=== PATIENT | male | born 1990 | race African-American/Black ===

== ENCOUNTER 2023-12-29 09:22 | Emergency (ER) | payer MEDICAID ==
[~2023-12-29] VITALS: Ht 180.3 cm; Wt 78.0 kg
[~2023-12-29 09:22] MED LIST: INSLIS SUBCUT; LANTUSUD SUBCUT; METF-873 PO
[2023-12-29 09:28] VITALS: O2SAT 100
[2023-12-29] MEDS ORDERED: BLOO-1812 MC (09:52)
[2023-12-29] MEDS ORDERED: LANC1COM7 TP (09:52)
[2023-12-29] MEDS ORDERED: LANTUSUD SUBCUT (09:52)
[2023-12-29 09:58] LABS: BASOPHILS % 0.3 % (0.0-2.0); EOSINOPHILS % 0.6 % (0.0-5.0); HEMATOCRIT. 48.5 % (42.0-52.0); HEMOGLOBIN. 15.6 g/dL (14.0-18.0); LYMPHOCYTES % 15.6 % (20.0-50.0); MEAN CORPUSCULAR HEMOGLOBIN 27.6 pg (28.0-32.0); MEAN CORPUSCULAR HGB CONC 32.1 g/dL (31.0-37.0); MEAN CORPUSCULAR VOLUME 85.9 fL (80.0-94.0); MEAN PLATELET VOLUME 8.8 fl (7.4-10.4); MONOCYTES % 5.2 % (2.0-8.0); NEUTROPHILS % 78.3 % (40.0-76.0); PLATELET 189 x1000/uL (130-400); RED BLOOD CELL COUNT 5.64 mill/uL (4.7-6.1); RED CELL DISTRIBUTION WIDTH 13.6 % (11.6-14.6); WHITE BLOOD COUNT 10.1 x1000/uL (4.5-11.0)
[2023-12-29] MEDS: ACETAMINOPHEN 325MG TABLET PO ONE (10:03)
[2023-12-29 10:06] LABS: CHLORIDE 104 mEq/L (98-107); SODIUM 134 mEq/L (136-145)
[2023-12-29 10:07] LABS: CALCIUM 9.3 mg/dL (8.7-10.4); CARBON DIOXIDE 24 mEq/L (21-32)
[2023-12-29 10:12] LABS: CREATININE 0.9 mg/dL (0.6-1.3); GLUCOSE 315 mg/dL (70-105); UREA NITROGEN BLOOD 11 mg/dL (9-23)
[2023-12-29 10:14] LABS: ALANINE AMINOTRANSFERASE 16 IU/L (10-49); ALBUMIN 4.3 g/dL (3.2-4.8); ASPARTATE AMINOTRANSFERASE 16 IU/L (<34); BILIRUBIN DIRECT 0.1 mg/dL (<=3.0); BILIRUBIN TOTAL 0.5 mg/dL (0.1-1.0)
[2023-12-29 10:15] LABS: PROTEIN TOTAL 7.3 g/dL (6.0-8.3)
[2023-12-29 11:12] VITALS: BP 151/92; PULSE 59; RESP 18; TEMP 36.78072; O2SAT 99
== END 2023-12-29 11:21 | disposition home or self-care (01) ==
LOC: ER 09:22
DX: R10.9 Unspecified abdominal pain (principal); E11.9 Type 2 diabetes mellitus without complications; Z79.899 Other long term (current) drug therapy
CPT/HCPCS: 36415; 74176; 80048; 80076; 82962; 85025; 86850; 86900; 99284

== ENCOUNTER 2024-09-16 18:38 | Emergency (ER) | payer MEDICAID, OTHER ==
[~2024-09-16] VITALS: Ht 175.3 cm; Wt 69.0 kg
[~2024-09-16 18:38] MED LIST changes: +BLOO-1812 MC; +LANC1COM7 TP; +METF-1149 PO; -METF-873 PO
[2024-09-16 18:49] VITALS: TEMP 37.2; O2SAT 96
[2024-09-16 19:48] LABS: BASOPHILS % 0.3 % (0.0-2.0); EOSINOPHILS % 2.2 % (0.0-5.0); HEMATOCRIT. 42.6 % (42.0-52.0); HEMOGLOBIN. 14.2 g/dL (14.0-18.0); LYMPHOCYTES % 33.0 % (20.0-50.0); MEAN PLATELET VOLUME 9.3 fl (7.4-10.4); MONOCYTES % 4.3 % (2.0-8.0); NEUTROPHILS % 60.2 % (40.0-76.0); PLATELET 141 x1000/uL (130-400); RED BLOOD CELL COUNT 4.95 mill/uL (4.7-6.1); RED CELL DISTRIBUTION WIDTH 13.6 % (11.6-14.6)
[2024-09-16 20:02] LABS: CREATININE 1.0 mg/dL (0.6-1.3); UREA NITROGEN BLOOD 18 mg/dL (9-23)
[2024-09-16 20:03] LABS: TROPONIN I HIGH SENSITIVITY < 4 ng/L (3.0-53)
[2024-09-16] MEDS: SODIUM CHLORIDE 0.9% 1,000 ML IV ONE (20:21)
[2024-09-16] MEDS: INSULIN REGULAR (HUMULIN R) 1000UNITS/10ML VIAL SUBCUT ONE (20:49)
[2024-09-16] MEDS ORDERED: LANTUSUD SUBCUT (21:33)
[2024-09-16] MEDS ORDERED: LANC1COM7 TP (21:33)
[2024-09-16] MEDS ORDERED: METF-1149 PO (21:33)
[2024-09-16] MEDS ORDERED: INSLIS SUBCUT (21:33)
[2024-09-16] MEDS ORDERED: BLOO-1812 MC (21:33)
[2024-09-16 21:34] LABS: CLARITY URINE CLEAR (CLEAR); COLOR URINE YELLOW (YELLOW); PH URINE 5.5 (4.5-8.0); SPECIFIC GRAVITY URINE 1.042 (1.005-1.030)
[2024-09-16 21:35] LABS: GLUCOSE URINE 3+ (NEGATIVE); KETONES URINE 1+ (NEGATIVE); LEUKOCYTE ESTERASE URINE NEGATIVE (NEGATIVE); NITRITE URINE NEGATIVE (NEGATIVE); OCCULT BLOOD URINE NEGATIVE (NEGATIVE); PROTEIN URINE NEGATIVE (NEGATIVE); UROBILINOGEN URINE 1.0 E.U./dL (0.2-1.0)
[2024-09-16 22:45] VITALS: BP 132/92; PULSE 60; RESP 23; O2SAT 100
== END 2024-09-16 23:09 | disposition home or self-care (01) ==
LOC: ER 18:38
DX: E11.65 Type 2 diabetes mellitus with hyperglycemia (principal); Z79.899 Other long term (current) drug therapy
CPT/HCPCS: 99284; 96360; 80048; 81003; 82010; 82962; 85025; 84484; 36415; 93005; 96372; J7030; J1815